=== PATIENT | male | born 1940 | race Caucasian/White ===

== ENCOUNTER 2016-12-31 08:47 | Observation (INO) | payer MEDICARE, BC ==
[2016-12-31] VITALS (7 sets, daily range): BP systolic 113–155; BP diastolic 69–87; PULSE 45–83; RESP 16–20; TEMP 96.3–98.3; O2SAT 95–99
[~2016-12-31] VITALS: Ht 177.8 cm; Wt 69.4 kg
[~2016-12-31 08:47] MED LIST: CEFD300C PO; SYNT112T PO
[2016-12-31] MEDS ORDERED: FINA5TAB2 PO (09:03)
[2016-12-31] MEDS ORDERED: ATOR20TA15 PO (09:03)
[2016-12-31] MEDS ORDERED: LEVO125T4 PO (09:03)
[2016-12-31] MEDS ORDERED: ASPI-516 CHEW (09:03)
--- NOTE | 2016-12-31 09:10 | PD ---
HPI Chief Complaint: Chest Pain Time Seen by Provider: 08:58 Travel History International Travel<30 days: No Contact w/Intl Traveler<30days: No Traveled to known affect area: No History of Present Illness HPI 76yo M with hypothyroidism, BPH, HLD presents to the ED with c/o left chest pain since last night. States it was intermittent but constant since about 1am. Pain is dull, nonradiating and associated with some sob. Denies any fever , n/v, diaphoresis, abdominal pain, focal weakness or numbness. Pt has not seen a dial painter for at least 15 years and has not had a stress test at least that time as well. Takes aspirin 81mg at night. PFSH Past Medical History High Cholesterol: Yes Thyroid Disease: Yes Past Surgical History Abdominal Surgery: Yes (HERNIA REPAIR) Endocrine Surgery: Yes (PROSTATE BX) Social History Alcohol Use: Yes (SOCIAL) Tobacco Use: No Substance Use: No Allergies-Medications (Allergen,Severity, Reaction): Coded Allergies: penicillin G (Unverified Allergy, Intermediate, RASH, 12/31/16) Reported Meds & Prescriptions Reported Meds & Active Scripts Active Reported Aspirin 81 Mg Chew 81 Mg CHEW HS Atorvastatin (Atorvastatin Calcium) 20 Mg Tab 20 Mg PO HS Finasteride 5 Mg Tab 5 Mg PO DAILY Do not crush. Levothyroxine (Levothyroxine Sodium) 125 Mcg Tab 125 Mcg PO DAILY Review of Systems Except as stated in HPI: all other systems reviewed are Neg Physical Exam Narrative GENERAL: 76yo M not in distress. SKIN: Focused skin assessment warm/dry. HEAD: Atraumatic. Normocephalic. EYES: Pupils equal and round. No scleral icterus. No injection or drainage. ENT: No nasal bleeding or discharge. Mucous membranes pink and moist. NECK: Trachea midline. No JVD. CARDIOVASCULAR: Bradycardia fluctuating from mid 40s to low 60bpm. No murmur appreciated. RESPIRATORY: No accessory muscle use. Clear to auscultation. Breath sounds equal bilaterally. GASTROINTESTINAL: Abdomen soft, non-tender, nondistended. MUSCULOSKELETAL: No obvious deformities. No clubbing. No cyanosis. No edema. NEUROLOGICAL: Awake and alert. No obvious cranial nerve deficits. Motor grossly within normal limits. Normal speech. PSYCHIATRIC: Appropriate mood and affect; insight and judgment normal. Data Data Last Documented VS Vital Signs Date Time Temp Pulse Resp B/P (MAP) Pulse Ox O2 Delivery O2 Flow Rate FiO2 12/31/16 11:00 49 18 113/80 (91) 99 Room Air 12/31/16 08:55 98.2 Orders Orders Basic Metabolic Panel (Bmp) (12/31/16 09:06) Complete Blood Count With Diff (12/31/16 09:06) Magnesium (Mg) (12/31/16 09:06) Prothrombin Time / Inr (Pt) (12/31/16 09:06) Act Partial Throm Time (Ptt) (12/31/16 09:06) Troponin I (12/31/16 09:06) Chest, Single Ap (12/31/16 09:06) Aspirin (Aspirin) (12/31/16 09:15) Thyroid Stimulating Hormone (12/31/16 09:06) Nitroglycerin Sl (Nitrostat Sl) (12/31/16 10:15) Thyroxine (T4) (12/31/16 11:19) Aspirin Chew (Aspirin Chew) (12/31/16 21:00) Atorvastatin (Lipitor) (12/31/16 21:00) Finasteride (Proscar) (01/01/17 09:00) Levothyroxine (Synthroid) (01/01/17 06:00) Admit Order (Ed Use Only) (12/31/16 11:48) Labs Laboratory Tests Test 12/31/16 09:20 White Blood Count 9.1 TH/MM3 Red Blood Count 4.09 MIL/MM3 Hemoglobin 13.3 GM/DL Hematocrit 40.1 % Mean Corpuscular Volume 97.9 FL Mean Corpuscular Hemoglobin 32.6 PG Mean Corpuscular Hemoglobin Concent 33.3 % Red Cell Distribution Width 13.5 % Platelet Count 166 TH/MM3 Mean Platelet Volume 8.0 FL Neutrophils (%) (Auto) 54.3 % Lymphocytes (%) (Auto) 37.3 % Monocytes (%) (Auto) 3.7 % Eosinophils (%) (Auto) 2.1 % Basophils (%) (Auto) 2.6 % Neutrophils # (Auto) 5.0 TH/MM3 Lymphocytes # (Auto) 3.4 TH/MM3 Monocytes # (Auto) 0.3 TH/MM3 Eosinophils # (Auto) 0.2 TH/MM3 Basophils # (Auto) 0.2 TH/MM3 CBC Comment DIFF FINAL Differential Comment Prothrombin Time 11.6 SEC Prothromb Time International Ratio 1.0 RATIO Activated Partial Thromboplast Time 27.8 SEC Blood Urea Nitrogen 18 MG/DL Creatinine 0.99 MG/DL Random Glucose 122 MG/DL Calcium Level 8.7 MG/DL Magnesium Level 2.1 MG/DL Sodium Level 141 MEQ/L Potassium Level 4.1 MEQ/L Chloride Level 107 MEQ/L Carbon Dioxide Level 26.2 MEQ/L Anion Gap 8 MEQ/L Estimat Glomerular Filtration Rate 74 ML/MIN Troponin I LESS THAN 0.02 NG/ML Thyroxine (T4) 7.8 MCG/DL Thyroid Stimulating Hormone 3rd Gen 6.800 uIU/ML MDM Medical Decision Making Medical Screen Exam Complete: Yes Emergency Medical Condition: Yes Interpretation(s) EKG: Sinus bradycardia at 46bpm. Normal axis. PAC. No ST segment elevation or depression. Differential Diagnosis ACS vs. arrhythmia vs. electrolyte abnormality Narrative Course 76yo M with left sided chest pain. It started as intermittent but now constant. Labs reviewed, no leukocytosis. Troponin negative. TSH is elevated. T4 added. CXR showed mild cardiomegaly. Pt given aspirin and sublingual nitro PRN chest pain. Also bradycardic and not on any beta brando or calcium channel brando. Pt's dial painter was Dr. Juarez but has not seen Dr. Juarez since [address]. Discussed with Dr. Blandon and accepted to his service. Diagnosis Primary Impression: Chest pain Qualified Codes: R07.9 - Chest pain, unspecified Admitting Information Admitting Physician Requests: Terrence GutierrezHayley rioslety FELIX Dec 31, 2016 09:10
[2016-12-31] MEDS ORDERED: ASPIRIN 325 MG TAB PO ONE (09:15)
[2016-12-31 09:29] LABS: BASOPHIL # 0.2 TH/MM3 (0-0.2); BASOPHIL % 2.6 % (0.0-2.0); EOSINOPHIL # 0.2 TH/MM3 (0-0.4); EOSINOPHIL % 2.1 % (0.0-4.0); HEMATOCRIT 40.1 % (39.0-51.0); LYMPH % 37.3 % (9.0-44.0); LYMPHOCYTE # 3.4 TH/MM3 (1.0-4.8); MEAN CELL VOLUME 97.9 FL (80.0-100.0); MEAN CORPUSCULAR HEMOGLOBIN 32.6 PG (27.0-34.0); MEAN CORPUSCULAR HGB CONC 33.3 % (32.0-36.0); MONO % 3.7 % (0.0-8.0); NEUT % 54.3 % (16.0-70.0); PLATELET COUNT 166 TH/MM3 (150-450); RED BLOOD COUNT 4.09 MIL/MM3 (4.50-5.90); RED CELL DISTRIBUTION WIDTH 13.5 % (11.6-17.2); WHITE BLOOD COUNT 9.1 TH/MM3 (4.0-11.0)
[2016-12-31 09:31] LABS: HEMO FLAGS DIFF FINAL
[2016-12-31 09:42] LABS: APTT (PATIENT) 27.8 SEC (24.3-30.1); PROTHROMBIN TIME - PATIENT 11.6 SEC (9.8-11.6)
--- NOTE | 2016-12-31 09:46 | RADRPT ---
EXAM DATE/TIME: 12/31/2016 09:20 [facility] COMPARISON: No previous studies available for comparison. INDICATIONS : Chest pain. MEDICAL HISTORY : None. SURGICAL HISTORY : None. ENCOUNTER: Initial ACUITY: 2 days PAIN SCORE: 2/10 LOCATION: Bilateral chest FINDINGS: 2 portable frontal views of the chest show the lungs to be hyperaerated but clear. No effusions. Mild cardiomegaly. Bony structures are unremarkable. CONCLUSION: 1. Mild cardiomegaly. 2. Hyperinflation suggesting COPD. Marcelino Ovalle Jr., MD on December 31, 2016 at 9:44 Board Certified Radiologist. This report was verified electronically.
[2016-12-31 10:14] LABS: BICARBONATE 26.2 MEQ/L (21.0-32.0); MAGNESIUM 2.1 MG/DL (1.5-2.5)
[2016-12-31] MEDS ORDERED: NITROGLYCERIN 0.4 MG SL 25 TABS/BTL SL PRN ×2 (10:15→12:00)
[2016-12-31 10:18] LABS: GLOMERULAR FILTRATION RATE 74 ML/MIN (>89)
[2016-12-31 10:24] LABS: ANION GAP 8 MEQ/L (5-15); CHLORIDE 107 MEQ/L (98-107); POTASSIUM 4.1 MEQ/L (3.5-5.1); SODIUM (NA) 141 MEQ/L (136-145)
[2016-12-31 10:28] LABS: BLOOD UREA NITROGEN 18 MG/DL (7-18)
[2016-12-31] MEDS ORDERED: SODIUM CHLORIDE 0.9% FLUSH 10 ML FLUSH IV FLUSH PRN (12:00)
[2016-12-31] MEDS ORDERED: ONDANSETRON HCL 4 MG/2 ML VIAL IV PUSH PRN (12:00)
[2016-12-31] MEDS: HEPARIN SODIUM - SQ 10,000 UNITS/ML VIAL SQ SCH ×2 (12:05→21:00)
[2016-12-31 15:17] LABS: CREATINE KINASE 54 U/L (39-308)
--- NOTE | 2016-12-31 15:26 | HHI.HP ---
[facility] Paul Pedroza DO Admission Diagnosis Chest pain Diagnoses: (1) Chest pain Chief Complaint: Chest pain Travel History International Travel<30 Days: No Contact w/Intl Traveler <30 Da: No Traveled to Known Affected Are: No History of Present Illness Written by Christie Macario, acting as scribe for Dr. Blandon on 12/31/16 at 15: 13. Mr. Hinkle is a 76-year-old male patient with a known medical history of hypothyroidism and hyperlipidemia who presented to the ED with complaints of chest pain. Patient states that as he was sitting at the computer last evening he developed a dull, pressure-like pain in his left-sided chest, rated a 3/10 on pain scale, constant in nature with associated dyspnea, denies any nausea, vomiting or diaphoresis, radiated to his left shoulder and back. Pain lasted a few hours. Patient states that he has had this pain in the past with it usually subsiding after a few hours. He went to sleep and throughout the night he could not get comfortable with continued chest pain that would not go away. Denies any recent illness. Does state that he did have a cardiac stress test 15 years ago which was reportedly negative. Review of Systems Constitutional: DENIES: Fever, Chills, Dizziness Eyes: DENIES: Blurred vision Respiratory: COMPLAINS OF: Shortness of breath, DENIES: Cough Cardiovascular: COMPLAINS OF: Chest pain Gastrointestinal: DENIES: Abdominal pain, Bloody stools, Constipation, Diarrhea , Nausea, Vomiting Psychiatric: DENIES: Anxiety Except as stated in HPI: all other systems reviewed are Neg Past Family Social History Past Medical History Hypothyroidism Hyperlipidemia Varicose veins Past Surgical History Hernia repair x 5 Reported Medications Active Reported Aspirin 81 Mg Chew 81 Mg CHEW HS Atorvastatin (Atorvastatin Calcium) 20 Mg Tab 20 Mg PO HS Finasteride 5 Mg Tab 5 Mg PO DAILY Do not crush. Levothyroxine (Levothyroxine Sodium) 125 Mcg Tab 125 Mcg PO DAILY Allergies: Coded Allergies: penicillin G (Unverified Allergy, Intermediate, RASH, 12/31/16) Active Ordered Medications Current Medications Medications (Trade) Dose Ordered Sig/Latoya Route Start Time Stop Time Status Last Admin (Aspirin Chew) 81 mg HS CHEW 12/31/16 21:00 (Lipitor) 20 mg HS PO 12/31/16 21:00 (Proscar) 5 mg DAILY PO 01/01/17 09:00 (Synthroid) 125 mcg DAILY@0600 PO 01/01/17 06:00 (NS Flush) 2 ml UNSCH PRN IV FLUSH 12/31/16 12:00 (NS Flush) 2 ml BID IV FLUSH 12/31/16 21:00 (Zofran Inj) 4 mg Q6H PRN IV PUSH 12/31/16 12:00 (Nitrostat Sl) 0.4 mg Q5M PRN SL 12/31/16 12:00 (Heparin Inj) 5,000 units Q12HR SQ 12/31/16 12:00 12/31/16 12:05 Family History Paternal medical history significant for cardiovascular disease. Maternal medical history significant for stroke. Social History Denies any tobacco use. Admits to 2 alcoholic drinks per night. Denies any illicit drug use. Physical Exam Vital Signs Vital Signs Date Time Temp Pulse Resp B/P (MAP) Pulse Ox O2 Delivery O2 Flow Rate FiO2 12/31/16 14:30 97.0 54 16 116/69 (85) 96 12/31/16 14:00 52 16 115/70 (85) 98 Room Air 12/31/16 14:00 12/31/16 11:00 49 18 113/80 (91) 99 Room Air 12/31/16 08:55 98.2 83 16 155/87 (109) 99 Physical Exam GENERAL: This is a well-nourished, well-developed male patient, lying in bed in no apparent distress. SKIN: No rashes, ecchymoses or lesions. Warm and dry. HEENT: Atraumatic. Normocephalic. Pupils equal round and reactive. Extraocular motions intact. No scleral icterus. No injection or drainage. Nose without bleeding. Airway patent. NECK: Trachea midline. No JVD. Supple. CARDIOVASCULAR: Regular rate and rhythm without murmurs, gallops, or rubs. No reproducible chest pain to palpation. RESPIRATORY: Clear to auscultation. Breath sounds equal bilaterally. No wheezes , rales, or rhonchi. GASTROINTESTINAL: Abdomen soft, non-tender, nondistended. No guarding. MUSCULOSKELETAL: Extremities without clubbing, cyanosis, or edema. No joint tenderness, effusion, or edema noted. NEUROLOGICAL: Awake and alert. Cranial nerves II through XII intact. Motor and sensory grossly within normal limits. Five out of 5 muscle strength in all muscle groups. Normal speech. Laboratory Laboratory Tests Test 12/31/16 09:20 12/31/16 12:12 12/31/16 14:45 White Blood Count 9.1 Red Blood Count 4.09 Hemoglobin 13.3 Hematocrit 40.1 Mean Corpuscular Volume 97.9 Mean Corpuscular Hemoglobin 32.6 Mean Corpuscular Hemoglobin Concent 33.3 Red Cell Distribution Width 13.5 Platelet Count 166 Mean Platelet Volume 8.0 Neutrophils (%) (Auto) 54.3 Lymphocytes (%) (Auto) 37.3 Monocytes (%) (Auto) 3.7 Eosinophils (%) (Auto) 2.1 Basophils (%) (Auto) 2.6 Neutrophils # (Auto) 5.0 Lymphocytes # (Auto) 3.4 Monocytes # (Auto) 0.3 Eosinophils # (Auto) 0.2 Basophils # (Auto) 0.2 CBC Comment DIFF FINAL Differential Comment Prothrombin Time 11.6 Prothromb Time International Ratio 1.0 Activated Partial Thromboplast Time 27.8 Blood Urea Nitrogen 18 Creatinine 0.99 Random Glucose 122 Calcium Level 8.7 Magnesium Level 2.1 Sodium Level 141 Potassium Level 4.1 Chloride Level 107 Carbon Dioxide Level 26.2 Anion Gap 8 Estimat Glomerular Filtration Rate 74 Troponin I LESS THAN 0.02 0.02 Thyroxine (T4) 7.8 Thyroid Stimulating Hormone 3rd Gen 6.800 Total Creatine Kinase 55 Result Diagram: 12/31/1691912/31/16919 Imaging Last Impressions Chest X-Ray 12/31/16905 Signed Impressions: Service Date/Time: December 09:20 - CONCLUSION: 1. Mild cardiomegaly. 2. Hyperinflation suggesting COPD. MD Thom Doan Jr. VTE Risk Assessment Thom VTE Risk Assessment: Mod/High Risk (score >= 2) Caprini Risk Assessment Model Point Value = 1 Point Value = 2 Point Value = 3 Point Value = 5 Age 41-60 Minor surgery BMI > 25 kg/m2 Swollen legs Varicose veins or History of unexplained or recurrent spontaneous Oral contraceptives or hormone replacement Sepsis (< 1 month) Serious lung disease, including pneumonia (< 1 month) Abnormal pulmonary function Acute myocardial infarction Congestive heart failure (< 1 month) History of inflammatory bowel disease Medical patient at bed rest Age 61-74 Arthroscopic surgery Major open surgery (> 45 min) Laparoscopic surgery (> 45 min) Malignancy Confined to bed (> 72 hours) Immobilizing plaster cast Central venous access Age >= 75 History of VTE Family history of VTE Factor V Leiden Prothrombin [id number] Lupus anticoagulant Anticardiolipin antibodies Elevated serum homocysteine Heparin-induced thrombocytopenia Other congenital or acquired thrombophilia Stroke (< 1 month) Elective arthroplasty Hip, pelvis, or leg fracture Acute spinal cord injury (< 1 month) Prophylaxis Regimen Total Risk Factor Score Risk Level Prophylaxis Regimen 0-1 Low Early ambulation 2 Moderate Order ONE of the following: *Sequential Compression Device (SCD) *Heparin 5000 units SQ BID 3-4 Higher Order ONE of the following medications: *Heparin 5000 units SQ TID *Enoxaparin/Lovenox 40 mg SQ daily (WT < 150 kg, CrCl > 30 mL/min) *Enoxaparin/Lovenox 30 mg SQ daily (WT < 150 kg, CrCl > 10-29 mL/min) *Enoxaparin/Lovenox 30 mg SQ BID (WT < 150 kg, CrCl > 30 mL/min) AND/OR *Sequential Compression Device (SCD) 5 or more Highest Order ONE of the following medications: *Heparin 5000 units SQ TID (Preferred with Epidurals) *Enoxaparin/Lovenox 40 mg SQ daily (WT < 150 kg, CrCl > 30 mL/min) *Enoxaparin/Lovenox 30 mg SQ daily (WT < 150 kg, CrCl > 10-29 mL/min) *Enoxaparin/Lovenox 30 mg SQ BID (WT < 150 kg, CrCl > 30 mL/min) AND *Sequential Compression Device (SCD) Assessment and Plan Problem List: (1) Chest pain ICD Code: R07.9 - Chest pain, unspecified Status: Acute Plan: Patient has been admitted to the chest pain center. Serial EKGs and serial troponins ordered for ruling out ACS purposes. Rowena flat. EKG reviewed showing sinus bradycardia, no arrhythmias noted, no ST changes seen. Continue home aspirin. CXR reviewed showing mild cardiomegaly and hyperinflation related to COPD. Continue cardiac telemetry. A nuclear stress test has been ordered to rule out any other possibility of ischemia. Further hospital course will follow depending on nuclear stress test results. Patient is stable at this time and agreeable to the plan. (2) Dyslipidemia ICD Code: E78.5 - Hyperlipidemia, unspecified Plan: Will continue home Atorvastatin. (3) Hypothyroidism ICD Code: E03.9 - Hypothyroidism, unspecified Plan: TSH elevated. T 4 level WNL. Will continue home Levothyroxine. Patient states that he has not had dose change in over a year. (4) BPH (benign prostatic hyperplasia) ICD Code: N40.0 - Benign prostatic hyperplasia without lower urinary tract symptoms Plan: Continue home Finasteride. Assessment and Plan This note was transcribed by scribe [Christie Macario]. I, Dr. Olivia Blandon personally performed the history, physical exam, and medical decision making; and confirmed the accuracy of the information in the transcribed note. Authenticated by Dr. Olivia Blandon on 12/31/16 at 1520. Problem Qualifiers (1) Chest pain: Qualified Codes: R07.9 - Chest pain, unspecified Christie Macario Dec 31, 2016 15:26 Olivia Blandon MD Dec 31, 2016 16:50
[2016-12-31] MEDS ORDERED: REGADENOSON INJ 0.4 MG/5 ML SYR IV ONE (17:32)
--- NOTE | 2016-12-31 18:41 | RADRPT ---
EXAM DATE/TIME: 12/31/2016 17:18 [facility] COMPARISON: No previous studies available for comparison. INDICATIONS : Left sided chest pain. Angina. DOSE: 25.9 mCi Tc99m Myoview at stress. 8.1 mCi Tc99m Myoview at rest. 0.4 mg Lexiscan STRESS SYMPTOMS: Headache. EJECTION FRACTION: 56% MEDICAL HISTORY : Hypercholesterolemia. Hypothyroidism. SURGICAL HISTORY : Inguinal hernia repair. ENCOUNTER: Initial ACUITY: 2 days PAIN SCALE: 2/10 LOCATION: Left chest TECHNIQUE: The patient underwent pharmacologic stress with infusion of prescribed dose. Continuous ECG tracing was monitored during stress. Gated SPECT imaging was performed after stress and conventional SPECT i maging was performed at rest. The examination was performed on a SPECT/CT scanner, both attenuation and non-corrected datasets were reviewed. FINDINGS: DISTRIBUTION: The maximum perfused segment at stress is in the septal wall. PERFUSION STUDY: The pattern of perfusion at stress is within normal limits. GATED STUDY: There is intact wall motion and thickening without hypokinetic or dyskinetic segments. CONCLUSION: No areas of ischemia are seen. RISK CATEGORY: Low (<1% Annual Mortality Rate) Marc Ramesh MD on December 31, 2016 at 18:37 Board Certified Radiologist. This report was verified electronically.
[2016-12-31] MEDS ORDERED: SODIUM CHLORIDE 0.9% FLUSH 10 ML FLUSH IV FLUSH SCH (21:00)
[2016-12-31] MEDS ORDERED: ATORVASTATIN 20 MG TAB PO SCH (21:00)
[2016-12-31] MEDS ORDERED: ASPIRIN 81 MG CHEW TAB CHEW SCH (21:00)
[2017-01-01] VITALS: BP 119/80; PULSE 65; RESP 20; TEMP 99.3; O2SAT 98
[2017-01-01 04:00] VITALS: BP 95/53; PULSE 44; RESP 16; TEMP 97.9; O2SAT 95
[2017-01-01] MEDS ORDERED: LEVOTHYROXINE SODIUM 125 MCG TAB PO SCH (06:00)
--- NOTE | 2017-01-01 07:46 | HHI.DCPOC ---
Discharge Care Plan Diagnosis: (1) Hypothyroidism (2) Chest pain (3) Dyslipidemia Your Health Problems Are: Chest Pain Goals to Promote Your Health * To prevent worsening of your condition and complications * To maintain your health at the optimal level Directions to Meet Your Goals Take your medications as prescribed Follow your dietary instruction Follow activity as directed Keep your appointments as scheduled Take your immunizations and boosters as scheduled If your symptoms worsen call your PCP, if no PCP go to Urgent Care Center or Emergency Room Smoking is Dangerous to Your Health. Avoid second hand smoke Call the 24-hour hour crisis hotline for domestic abuse at Christie Macario Jan 01, 2017 07:46
--- NOTE | 2017-01-01 08:36 | HHI.PR ---
Subjective Remarks Follow up chest pain. Patient seen and examined, at bedside. Lying in bed comfortably in no distress. Denies any new acute complaints overnight. Chest pain has resolved. Denies any fever, chills, cough. Objective Vitals Vital Signs Date Time Temp Pulse Resp B/P (MAP) Pulse Ox O2 Delivery O2 Flow Rate FiO2 01/01/17 04:00 97.9 44 16 95/53 (67) 95 01/01/17 00:00 99.3 65 20 119/80 (93) 98 12/31/16 20:30 96 21 12/31/16 20:00 45 12/31/16 20:00 96.3 53 18 116/75 (89) 98 12/31/16 15:50 96.5 51 20 115/74 (88) 96 12/31/16 14:30 97.0 54 16 116/69 (85) 96 12/31/16 14:00 52 16 115/70 (85) 98 Room Air 12/31/16 14:00 12/31/16 11:00 49 18 113/80 (91) 99 Room Air 12/31/16 08:55 98.2 83 16 155/87 (109) 99 I/O 12/31/16 12/31/16 12/31/16 01/01/17 01/01/17 01/01/17 07:00 15:00 23:00 07:00 15:00 23:00 Intake Total 0 ml Balance 0 ml Intake Oral 0 ml # Voids 3 # Bowel Movements 1 Result Diagram: 12/31/16 0920 12/31/16 0920 Imaging Last Impressions Chest X-Ray 12/31/16 0906 Signed Impressions: Service Date/Time: December 09:20 - CONCLUSION: 1. Mild cardiomegaly. 2. Hyperinflation suggesting COPD. Marcelino Ovalle Jr., MD Myocardial Perfusion Scan Nuc Med 12/31/16 0000 Signed Impressions: Service Date/Time: December 17:18 - CONCLUSION: No areas of ischemia are seen. RISK CATEGORY: Low (<1%% Annual Mortality Rate) Marc Ramesh MD Objective Remarks GENERAL: This is a well-nourished, well-developed male patient, lying in bed in no apparent distress. SKIN: No rashes, ecchymoses or lesions. Warm and dry. HEENT: Atraumatic. Normocephalic. Pupils equal round and reactive. Extraocular motions intact. No scleral icterus. No injection or drainage. Nose without bleeding. Airway patent. NECK: Trachea midline. No JVD. Supple. CARDIOVASCULAR: Regular rate and rhythm without murmurs, gallops, or rubs. No reproducible chest pain to palpation. RESPIRATORY: Clear to auscultation. Breath sounds equal bilaterally. No wheezes , rales, or rhonchi. GASTROINTESTINAL: Abdomen soft, non-tender, nondistended. No guarding. MUSCULOSKELETAL: Extremities without clubbing, cyanosis, or edema. No joint tenderness, effusion, or edema noted. NEUROLOGICAL: Awake and alert. Cranial nerves II through XII intact. Motor and sensory grossly within normal limits. Five out of 5 muscle strength in all muscle groups. Normal speech. A/P Problem List: (1) Chest pain ICD Code: R07.9 - Chest pain, unspecified Status: Acute Plan: Patient has been admitted to the chest pain center. Serial EKGs and serial troponins ordered for ruling out ACS purposes. Tropnons flat. EKG reviewed showing sinus bradycardia, no arrhythmias noted, no ST changes seen. Continue home aspirin. CXR reviewed showing mild cardiomegaly and hyperinflation related to COPD. Cardiac telemetry reviewed overnight, patient SB with HR as low as 40. Denies any symptoms. States that this is chronic with the patient. A nuclear stress test was performed and report reviewed showing no ischemia with EF of 56%. Spoke to and about results. Recommendations to f/u with PCP for asymptomatic bradycardia. (2) Dyslipidemia ICD Code: E78.5 - Hyperlipidemia, unspecified Plan: Will continue home Atorvastatin. (3) Hypothyroidism ICD Code: E03.9 - Hypothyroidism, unspecified Plan: Will continue home Levothyroxine. (4) BPH (benign prostatic hyperplasia) ICD Code: N40.0 - Benign prostatic hyperplasia without lower urinary tract symptoms Plan: Continue home Finasteride. Problem Qualifiers (1) Chest pain: Qualified Codes: R07.9 - Chest pain, unspecified Christie Macario Jan 01, 2017 08:36
[2017-01-01] MEDS ORDERED: FINASTERIDE 5 MG TAB PO SCH (09:00)
== END 2017-01-01 09:21 | disposition home or self-care (01) ==
LOC: PHED 08:47 → PHEDA 11:49 → PH3A 13:51
PROVIDERS: ADMIT Family Medicine; ATTEND Family Medicine
DX: R07.9 Chest pain, unspecified (principal); E78.5 Hyperlipidemia, unspecified; E03.9 Hypothyroidism, unspecified; R94.6 Abnormal results of thyroid function studies; N40.0 Benign prostatic hyperplasia without lower urinary tract symptoms; Z79.82 Long term (current) use of aspirin; Z79.899 Other long term (current) drug therapy; I51.7 Cardiomegaly; R00.1 Bradycardia, unspecified; R06.02 Shortness of breath
CPT/HCPCS: 71010; 78452; 80048; 82550; 83735; 84436; 84443; 84484; 85025; 85610; 85730; 93005; 93017; 99285; A9502; G0378; J1644; J2785